=== PATIENT | male | born 1965 | race Native Hawaiian/Other Pacific Islander ===

== ENCOUNTER 2016-08-04 09:34 | Emergency (ER) | payer OTHER ==
[~2016-08-04] VITALS: Ht 180.3 cm; Wt 95.3 kg
[~2016-08-04 09:34] MED LIST: BAYER ASA325 M1 OR; CLOP75TA2 PO; LIPITOR40 MG PO; PRINIVIL5 MG OR; PROPRANOLOL10 MG OR
[2016-08-04 10:09] LABS: PLATELET COUNT 234 K/uL (142-355)
[2016-08-04 10:13] LABS: POTASSIUM 4.2 mmol/L (3.6-5.2); SODIUM 132 mmol/L (136-145)
[2016-08-04 10:40] LABS: PARTIAL THROMBOPLASTIN TIME 26.1 SECONDS (24.5-33.6)
[2016-08-04 11:09] VITALS: BP 120/66; TEMP 98.9
== END 2016-08-04 11:34 | disposition short-term general hospital (02) ==
LOC: ED 09:34
PROVIDERS: Emergency Medicine
DX: R07.89 Other chest pain (principal); R07.2 Precordial pain
CPT/HCPCS: 80053; 82550; 83880; 84484; 85027; 85610; 85730; 93005; 99284; J2270; J2405

== ENCOUNTER 2016-08-04 11:36 | Outpatient (CLI) | payer OTHER | END 2016-08-04 12:08 | disposition short-term general hospital (02) | LOC: AMB 11:36 | DX: R07.89 Other chest pain (principal); R07.2 Precordial pain | CPT/HCPCS: A0425; A0427 ==

== ENCOUNTER 2016-11-02 10:09 | Outpatient (CLI) | payer OTHER | END 2016-11-02 19:07 | disposition home or self-care (01) | LOC: RAD 10:09 | DX: Z02.89 Encounter for other administrative examinations (principal) ==

== ENCOUNTER 2017-01-17 13:11 | Outpatient (CLI) | payer OTHER | END 2017-01-17 14:15 | disposition home or self-care (01) | LOC: LABW 13:11 | PROVIDERS: Family Medicine | DX: I25.10 Atherosclerotic heart disease of native coronary artery without angina pectoris (principal); E11.9 Type 2 diabetes mellitus without complications; E78.00 Pure hypercholesterolemia, unspecified | CPT/HCPCS: 36415; 80061; 80076; 83036 ==

== ENCOUNTER 2017-02-22 09:59 | Outpatient (CLI) | payer OTHER | END 2017-02-22 19:02 | disposition home or self-care (01) | LOC: RAD 09:59 | DX: M25.562 Pain in left knee (principal); M25.561 Pain in right knee ==

== ENCOUNTER 2018-02-26 17:11 | Emergency (ER) | payer OTHER ==
[~2018-02-26] VITALS: Ht 180.3 cm; Wt 103.9 kg
[2018-02-26 18:41] LABS: PLATELET COUNT 156 K/uL (142-355)
[2018-02-26 18:58] LABS: POTASSIUM 3.9 mmol/L (3.6-5.2); SODIUM 138 mmol/L (136-145)
[2018-02-26 21:33] VITALS: BP 145/88; TEMP 98
== END 2018-02-26 21:35 | disposition home or self-care (01) ==
LOC: ED 17:11
DX: L03.116 Cellulitis of left lower limb (principal); L03.115 Cellulitis of right lower limb; R06.02 Shortness of breath
CPT/HCPCS: 36415; 80053; 81000; 82550; 82553; 83880; 84484; 85027; 93005; 99283

== ENCOUNTER 2019-02-19 01:02 | Observation (INO) | payer OTHER ==
[~2019-02-19] VITALS: Ht 180.3 cm; Wt 91.8 kg
[2019-02-19] VITALS (14 sets, daily range): BP systolic 104–136; BP diastolic 60–80; TEMP 97.9–98.9; Ht 180.3 cm; Wt 91.8 kg
[2019-02-19] MEDS ORDERED: LIPITOR40 MG PO (01:37)
[2019-02-19] MEDS ORDERED: ASPIRIN325 M1 PO (01:37)
[2019-02-19] MEDS ORDERED: CLOP75TA2 PO (01:38)
[2019-02-19] MEDS ORDERED: PRINIVIL5 MG PO (01:38)
[2019-02-19] MEDS ORDERED: ISOS30TA17 PO (01:39)
[2019-02-19] MEDS ORDERED: PROPANALOL PO (01:41)
[2019-02-19 01:59] LABS: PLATELET COUNT 197 K/uL (142-355)
[2019-02-19 02:08] LABS: POTASSIUM 3.7 mmol/L (3.6-5.2); SODIUM 137 mmol/L (136-145)
[2019-02-19 02:15] LABS: PARTIAL THROMBOPLASTIN TIME 26.2 SECONDS (24.5-33.6)
== END 2019-02-19 17:15 | disposition home or self-care (01) ==
LOC: ED 01:02 → MED/SURG 02:50
PROVIDERS: Family Medicine; ADMIT Hospitalist
DX: I10 Essential (primary) hypertension (principal); I25.10 Atherosclerotic heart disease of native coronary artery without angina pectoris; E78.49 Other hyperlipidemia; J44.9 Chronic obstructive pulmonary disease, unspecified; E11.9 Type 2 diabetes mellitus without complications; R07.89 Other chest pain; E83.52 Hypercalcemia; D72.828 Other elevated white blood cell count; R06.02 Shortness of breath
CPT/HCPCS: 36415; 80053; 80061; 82550; 83036; 83880; 84443; 84484; 85027; 85610; 85730; 93005; 96372; 96374; 99220; 99283; 99284; G0378; J1650

== ENCOUNTER 2019-05-08 08:58 | Outpatient (CLI) | payer OTHER ==
[~2019-05-08] VITALS: Ht 177.8 cm; Wt 90.3 kg
[~2019-05-08 08:58] MED LIST changes: +ASPIRIN325 M1 PO; +ISOS30TA17 PO; +PRINIVIL5 MG PO; +PROPANALOL PO
== END 2019-05-08 20:31 | disposition home or self-care (01) ==
LOC: NM 08:58
DX: I25.10 Atherosclerotic heart disease of native coronary artery without angina pectoris (principal)
CPT/HCPCS: 93306; A9500; J2785

== ENCOUNTER 2019-06-14 09:04 | Outpatient (CLI) | payer OTHER | END 2019-06-14 20:11 | disposition home or self-care (01) | LOC: RESP 09:04 | DX: I25.10 Atherosclerotic heart disease of native coronary artery without angina pectoris (principal) | CPT/HCPCS: 93225 ==

== ENCOUNTER 2019-07-09 08:41 | Outpatient (CLI) | payer OTHER ==
[2019-07-09 09:13] LABS: POTASSIUM 4.3 mmol/L (3.6-5.2)
[2019-07-09 09:50] LABS: PLATELET COUNT 160 K/uL (142-355)
== END 2019-07-09 22:31 | disposition home or self-care (01) ==
LOC: LABW 08:41
PROVIDERS: Specialist
DX: Z01.810 Encounter for preprocedural cardiovascular examination (principal); R93.1 Abnormal findings on diagnostic imaging of heart and coronary circulation; E78.2 Mixed hyperlipidemia
CPT/HCPCS: 36415; 80053; 80061; 85027

== ENCOUNTER 2019-08-13 07:37 | Outpatient (CLI) | payer OTHER ==
[2019-08-13 08:11] LABS: PLATELET COUNT 160 K/uL (142-355)
[2019-08-13 08:23] LABS: POTASSIUM 4.2 mmol/L (3.6-5.2)
== END 2019-08-13 19:03 | disposition home or self-care (01) ==
LOC: LABW 07:37
PROVIDERS: Specialist
DX: Z01.810 Encounter for preprocedural cardiovascular examination (principal); R93.1 Abnormal findings on diagnostic imaging of heart and coronary circulation
CPT/HCPCS: 36415; 80053; 85027

== ENCOUNTER 2020-05-18 17:04 | Emergency (ER) | payer OTHER ==
[~2020-05-18] VITALS: Ht 177.8 cm; Wt 93.9 kg
[2020-05-18 17:51] LABS: PLATELET COUNT 186 K/uL (142-355)
[2020-05-18 17:55] LABS: POTASSIUM 4.2 mmol/L (3.6-5.2); SODIUM 136 mmol/L (136-145)
[2020-05-18 18:07] LABS: PARTIAL THROMBOPLASTIN TIME 26.3 SECONDS (24.5-33.6)
[2020-05-18 19:55] VITALS: BP 129/53; TEMP 98.7
== END 2020-05-18 20:00 | disposition home or self-care (01) ==
LOC: ED 17:07
PROVIDERS: Family Medicine
DX: G58.8 Other specified mononeuropathies (principal); G62.89 Other specified polyneuropathies
CPT/HCPCS: 80053; 81000; 82550; 83605; 84484; 85027; 85610; 85730; 99284

== ENCOUNTER 2020-06-26 08:46 | Outpatient (CLI) | payer OTHER | END 2020-06-26 19:15 | disposition home or self-care (01) | LOC: LABW 08:46 | PROVIDERS: ATTEND Specialist | DX: I25.10 Atherosclerotic heart disease of native coronary artery without angina pectoris (principal); E78.2 Mixed hyperlipidemia; Z79.899 Other long term (current) drug therapy | CPT/HCPCS: 36415; 80061; 80076 ==

== ENCOUNTER 2020-07-29 10:19 | Outpatient (CLI) | payer OTHER | END 2020-07-29 21:32 | disposition home or self-care (01) | LOC: RAD 10:19 | PROVIDERS: ATTEND Family Medicine | DX: M25.511 Pain in right shoulder (principal); J44.9 Chronic obstructive pulmonary disease, unspecified; I25.10 Atherosclerotic heart disease of native coronary artery without angina pectoris; E11.69 Type 2 diabetes mellitus with other specified complication; I10 Essential (primary) hypertension; F17.200 Nicotine dependence, unspecified, uncomplicated; E55.9 Vitamin D deficiency, unspecified | CPT/HCPCS: 36415; 82306; 83036 ==

== ENCOUNTER 2020-12-10 09:07 | Outpatient (CLI) | payer OTHER | END 2020-12-10 23:01 | disposition home or self-care (01) | LOC: LABW 09:07 | PROVIDERS: ATTEND Nurse Practitioner Adult Health | DX: E78.2 Mixed hyperlipidemia (principal); Z79.899 Other long term (current) drug therapy | CPT/HCPCS: 36415; 80061; 80076 ==

== ENCOUNTER 2021-08-20 07:12 | Outpatient (CLI) | payer OTHER | END 2021-08-20 19:06 | disposition home or self-care (01) | LOC: LABW 07:12 | PROVIDERS: ATTEND Nurse Practitioner Adult Health | DX: E78.49 Other hyperlipidemia (principal); Z79.899 Other long term (current) drug therapy | CPT/HCPCS: 36415; 80061; 80076 ==

== ENCOUNTER 2022-02-05 06:54 | Outpatient (CLI) | payer OTHER | END 2022-02-05 19:15 | disposition home or self-care (01) | LOC: LABW 06:54 | PROVIDERS: ATTEND Nurse Practitioner Adult Health | DX: E11.69 Type 2 diabetes mellitus with other specified complication (principal); E78.49 Other hyperlipidemia; I25.10 Atherosclerotic heart disease of native coronary artery without angina pectoris; R00.0 Tachycardia, unspecified | CPT/HCPCS: 36415; 80061; 83036 ==

== ENCOUNTER 2022-02-16 08:05 | Outpatient (CLI) | payer OTHER ==
[~2022-02-16] VITALS: Ht 177.8 cm; Wt 87.5 kg
== END 2022-02-16 21:32 | disposition home or self-care (01) ==
LOC: NM 08:05
PROVIDERS: ATTEND Nurse Practitioner
DX: I25.10 Atherosclerotic heart disease of native coronary artery without angina pectoris (principal)
CPT/HCPCS: A9500; J2785